=== PATIENT | female | born 1965 | race Caucasian/White ===

== ENCOUNTER 2018-05-12 17:28 | Emergency (ER) | payer OTHER ==
[~2018-05-12] VITALS: Ht 154.9 cm; Wt 68.2 kg
[~2018-05-12 17:28] MED LIST: DOCU-119 PO; FERR324T12 PO
[2018-05-12] MEDS ORDERED: MECL12.585 PO (17:37)
[2018-05-12 18:11] LABS: BASOPHILS % (AUTO) 0.4 % (0.0-2.0); EOSINOPHILS % (AUTO) 1.2 % (1.0-6.0); HEMATOCRIT 40.7 % (36-46); LYMPHOCYTES # (AUTO) 1.8 K/uL (1.0-4.8); LYMPHOCYTES % (AUTO) 30.7 % (22.0-44.0); MEAN CORPUSCULAR HGB CONC 34.4 G/dL (31.0-37.0); MEAN CORPUSCULAR VOLUME 87 fL (80-100); MONOCYTES # (AUTO) 0.4 K/uL (0.1-1.0); MONOCYTES % (AUTO) 6.3 % (2.0-9.0); NEUTROPHILS # (AUTO) 3.6 K/uL (1.8-7.7); NEUTROPHILS % (AUTO) 61.4 % (40.0-70.0); PLATELET COUNT (AUTO) 260 K/uL (150-450); RED BLOOD CELL COUNT(AUTO) 4.67 MIL/uL (4.00-5.20); RED CELL DISTRIBUTION WIDTH 12.8 % (11.5-14.5)
[2018-05-12 18:13] LABS: APPEARANCE,URINE TURBID (CLEAR); BILIRUBIN,URINE NEGATIVE (NEGATIVE); GLUCOSE, URINE (UA) NEGATIVE (NEGATIVE); KETONES,URINE NEGATIVE (NEGATIVE); LEUKOCYTE ESTERASE ,URINE MODERATE (NEGATIVE); NITRATE,URINE NEGATIVE (NEGATIVE); OCCULT BLOOD,URINE TRACE (NEGATIVE); PH,URINE 7.5 (5.0-8.0); PROTEIN,URINE NEGATIVE (NEGATIVE); UROBILINOGEN,URINE 0.2 mg/dL (<=1.0)
[2018-05-12 18:48] LABS: ANION GAP 12 mmol/L (8-16); CALCIUM, TOTAL 9.3 mg/dL (8.8-10.5); CARBON DIOXIDE 28 mmol/L (22-29); CHLORIDE 101 mmol/L (98-107); CREATININE 0.68 mg/dL (0.60-1.30); GLOMERULAR FILTR. RATE CALC > 60 mL/min (>60); GLUCOSE,RANDOM 102 mg/dL (70-110); POTASSIUM 3.4 mmol/L (3.5-5.1); SODIUM SERUM 141 mmol/L (136-145); UREA NITROGEN, BLOOD 14 mg/dL (7-18)
[2018-05-12 18:50] LABS: B-TYPE NATRIURETIC PEPTIDE 31 pg/mL (0-100)
[2018-05-12 18:53] LABS: RBC,URINE 0-2 /HPF (0-2)
[2018-05-12 18:54] LABS: ALANINE AMINOTRANSFERASE 27 U/L (12-78); ALKALINE PHOSPHATASE 114 U/L (46-116); ASPARTATE AMINOTRANSFERASE 16 U/L (15-37); BILIRUBIN,TOTAL 0.3 mg/dL (0.1-1.0); CREATINE KINASE, TOTAL ONLY 69 U/L (26-192); TOTAL PROTEIN, SERUM 7.7 g/dL (6.4-8.2)
[2018-05-12 18:55] LABS: AMORPHOUS SEDIMENT,UR Moderate /LPF (None Seen); BACTERIA,URINE Few /HPF (None Seen); SQUAMOUS EPITHELIAL CELL,UR Few /LPF (None Seen)
[2018-05-12 19:22] VITALS: BP 138/73
== END 2018-05-12 19:55 | disposition home or self-care (01) ==
LOC: EMS 17:29
DX: N39.0 Urinary tract infection, site not specified (principal); R42 Dizziness and giddiness; R06.02 Shortness of breath; Z88.0 Allergy status to penicillin
CPT/HCPCS: 87086; 93005

== ENCOUNTER 2019-12-14 23:11 | Emergency (ER) | payer OTHER ==
[~2019-12-14] VITALS: Ht 149.9 cm; Wt 62.0 kg
[~2019-12-14 23:11] MED LIST changes: +MECL-183 PO
[2019-12-14] MEDS ORDERED: CIPR-278 PO (23:46)
[2019-12-15 03:42] VITALS: BP 132/79
== END 2019-12-15 04:29 | disposition home or self-care (01) ==
LOC: EMS 23:13
DX: N81.10 Cystocele, unspecified (principal)
CPT/HCPCS: Z7502

== ENCOUNTER 2021-08-14 12:50 | Emergency (ER) | payer OTHER ==
[~2021-08-14] VITALS: Ht 149.9 cm; Wt 61.4 kg
[~2021-08-14 12:50] MED LIST changes: +CIPR-278 PO; -MECL-183 PO; +MECL-226 PO
[2021-08-14] MEDS ORDERED: SODIUM CHLORIDE 0.9% 1,000 ML IV ONE (14:00)
[2021-08-14] MEDS ORDERED: KETOROLAC TROMETHAMINE 30 MG/ML VIAL IVP ONE (14:00)
[2021-08-14 14:20] LABS: BASOPHILS % (AUTO) 0.1 % (0.0-2.0); EOSINOPHILS % (AUTO) 0.9 % (1.0-6.0); HEMATOCRIT 41.4 % (36-46); HEMOGLOBIN 14.1 g/dL (12.0-16.0); LYMPHOCYTES # (AUTO) 1.2 K/uL (1.0-4.8); LYMPHOCYTES % (AUTO) 16.4 % (22.0-44.0); MEAN CORPUSCULAR HEMOGLOBIN 29.8 pg (26.0-34.0); MEAN CORPUSCULAR VOLUME 88 fL (80-100); MONOCYTES # (AUTO) 0.6 K/uL (0.1-1.0); MONOCYTES % (AUTO) 8.4 % (2.0-9.0); NEUTROPHILS # (AUTO) 5.3 K/uL (1.8-7.7); NEUTROPHILS % (AUTO) 74.2 % (40.0-70.0); PLATELET COUNT (AUTO) 232 K/uL (150-450); RED BLOOD CELL COUNT(AUTO) 4.72 MIL/uL (4.00-5.20); RED CELL DISTRIBUTION WIDTH 12.6 % (11.5-14.5)
[2021-08-14 14:26] LABS: ANION GAP 9 mmol/L (8-16); CALCIUM, TOTAL 8.6 mg/dL (8.8-10.5); CARBON DIOXIDE 29 mmol/L (22-29); CHLORIDE 103 mmol/L (98-107); CREATININE 0.82 mg/dL (0.60-1.30); GLOMERULAR FILTR. RATE CALC > 60 mL/min (>60); GLUCOSE,RANDOM 108 mg/dL (70-110); POTASSIUM 3.9 mmol/L (3.5-5.1); SODIUM SERUM 141 mmol/L (136-145); UREA NITROGEN, BLOOD 16 mg/dL (7-18)
[2021-08-14 15:37] LABS: APPEARANCE,URINE CLEAR (CLEAR); BILIRUBIN,URINE NEGATIVE (NEGATIVE); GLUCOSE, URINE (UA) NEGATIVE (NEGATIVE); KETONES,URINE NEGATIVE (NEGATIVE); LEUKOCYTE ESTERASE ,URINE LARGE (NEGATIVE); NITRATE,URINE NEGATIVE (NEGATIVE); OCCULT BLOOD,URINE SMALL (NEGATIVE); PROTEIN,URINE NEGATIVE (NEGATIVE); SPECIFIC GRAVITIY, URINE 1.021 (1.003-1.030); UROBILINOGEN,URINE <=1.0 mg/dL (<=1.0)
[2021-08-14 15:47] LABS: BACTERIA,URINE Few /HPF (None Seen); RBC,URINE 0-2 /HPF (0-2); SQUAMOUS EPITHELIAL CELL,UR Few /LPF (None Seen)
[2021-08-14] MEDS ORDERED: CefTRIAXone 1 GM/DEXTROSE 50 ML IV ONE (16:00)
[2021-08-14] MEDS ORDERED: SULF-261 PO (16:15)
[2021-08-14] MEDS ORDERED: IBUP-2070 PO (16:41)
[2021-08-14 17:07] VITALS: BP 145/80
== END 2021-08-14 17:09 | disposition home or self-care (01) ==
LOC: EMS 12:50
DX: N12 Tubulo-interstitial nephritis, not specified as acute or chronic (principal); Z88.0 Allergy status to penicillin
CPT/HCPCS: 36415; 74176; 80048; 81001; 85025; 87086; 96361; 96365; 96375; 99284; J0696; J1885; J7030

== ENCOUNTER 2021-10-02 20:34 | Emergency (ER) | payer OTHER ==
[~2021-10-02] VITALS: Ht 149.9 cm; Wt 60.0 kg
[~2021-10-02 20:34] MED LIST changes: -CIPR-278 PO; -DOCU-119 PO; -FERR324T12 PO; +IBUP-2070 PO; -MECL-226 PO; +SULF-261 PO
[2021-10-02 21:17] LABS: APPEARANCE,URINE CLEAR (CLEAR); BILIRUBIN,URINE NEGATIVE (NEGATIVE); GLUCOSE, URINE (UA) NEGATIVE (NEGATIVE); KETONES,URINE NEGATIVE (NEGATIVE); LEUKOCYTE ESTERASE ,URINE SMALL (NEGATIVE); NITRATE,URINE NEGATIVE (NEGATIVE); OCCULT BLOOD,URINE SMALL (NEGATIVE); PH,URINE 6.5 (5.0-8.0); PROTEIN,URINE NEGATIVE (NEGATIVE); SPECIFIC GRAVITIY, URINE 1.014 (1.003-1.030); UROBILINOGEN,URINE <=1.0 mg/dL (<=1.0)
[2021-10-02 21:26] LABS: BACTERIA,URINE Few /HPF (None Seen); RBC,URINE 0-2 /HPF (0-2)
[2021-10-02 21:30] VITALS: BP 133/68
== END 2021-10-02 23:02 | disposition home or self-care (01) ==
LOC: EMS 20:37
DX: N81.4 Uterovaginal prolapse, unspecified (principal); Z87.442 Personal history of urinary calculi; Z86.69 Personal history of other diseases of the nervous system and sense organs; Z87.19 Personal history of other diseases of the digestive system; Z88.0 Allergy status to penicillin
CPT/HCPCS: 81001; 99283; 99284

== ENCOUNTER 2025-02-03 14:28 | Emergency (ER) | payer OTHER ==
[~2025-02-03] VITALS: Ht 162.6 cm; Wt 54.5 kg
[2025-02-03 15:16] LABS: PLATELET COUNT (AUTO) 283 K/uL (150-450); RED BLOOD CELL COUNT(AUTO) 4.68 MIL/uL (4.00-5.20); RED CELL DISTRIBUTION WIDTH 12.8 % (11.5-14.5); WHITE BLOOD COUNT (AUTO) 10.2 K/uL (4.5-11.0)
[2025-02-03 15:26] LABS: CALCIUM, TOTAL 9.6 mg/dL (8.8-10.5); CREATININE 0.80 mg/dL (0.60-1.30); GLOMERULAR FILTR. RATE CALC > 60 mL/min (>60); GLUCOSE,RANDOM 127 mg/dL (70-110); SODIUM SERUM 142 mmol/L (136-145); UREA NITROGEN, BLOOD 20 mg/dL (7-18)
[2025-02-03 15:30] LABS: ASPARTATE AMINOTRANSFERASE 20.0 U/L (15-37); TOTAL PROTEIN, SERUM 8.0 g/dL (6.4-8.2)
[2025-02-03 16:05] LABS: TROPONIN I-HIGH SENSITIVITY Less Than 4 ng/L (<51)
[2025-02-03 16:35] LABS: APPEARANCE,URINE HAZY (CLEAR); GLUCOSE, URINE (UA) NEGATIVE (NEGATIVE); LEUKOCYTE ESTERASE ,URINE SMALL (NEGATIVE); NITRATE,URINE NEGATIVE (NEGATIVE); OCCULT BLOOD,URINE LARGE (NEGATIVE); SPECIFIC GRAVITIY, URINE 1.018 (1.003-1.030)
[2025-02-03] MEDS: SODIUM CHLORIDE 0.9% 1,000 ML IV ONE (16:56)
[2025-02-03] MEDS: KETOROLAC TROMETHAMINE 30 MG/ML VIAL IVP ONE (16:57)
[2025-02-03 17:07] LABS: SQUAMOUS EPITHELIAL CELL,UR Few /LPF (None Seen)
[2025-02-03 20:34] VITALS: BP 158/74; PULSE 59; RESP 18; TEMP 97.5; O2SAT 98
[2025-02-03] MEDS ORDERED: HYDR-4062 PO (20:39)
[2025-02-03] MEDS ORDERED: TAMS0.4C94 PO (20:39)
[2025-02-03] MEDS ORDERED: SULF1TAB94 PO (20:39)
[2025-02-03] MEDS: TAMSULOSIN HCL 0.4 MG CAPSULE PO ONE (20:49)
== END 2025-02-03 21:21 | disposition home or self-care (01) ==
LOC: EMS 14:28
DX: N13.2 Hydronephrosis with renal and ureteral calculous obstruction (principal); R10.A1 Flank pain, right side; Z87.442 Personal history of urinary calculi; Z88.0 Allergy status to penicillin
CPT/HCPCS: 99285; 74176; 96374; 96361; 80048; 80076; 81001; 83690; 84484; 85025; 36415; 93005; J1885; J7030